=== PATIENT | female | born 1965 | race Caucasian/White ===

== ENCOUNTER 2017-01-13 19:10 | Emergency (ER) | payer OTHER ==
[2017-01-13] MEDS ORDERED: HYDROcodone/APAP 5-325MG 1 EACH TAB PO STA (20:05)
--- NOTE | 2017-01-13 20:10 | ED ---
Chest Pain HPI - General Chief Complaint: Dizziness Stated Complaint: heart palpitations Time Seen by Provider: 01/13/17 19:26 Source: patient Mode of arrival: wheelchair Limitations: no limitations - History of Present Illness Initial Comments: This patient is a 51-year-old woman with history of anxiety. She presents to be evaluate for sensation of chest tightness and palpitations that 1 going on since just before noon. The patient states that she had worked an overnight shift which is unusual for her. She went home and tried to sleep but she kept waking up with the sensation that her chest was pounding and then she also noted that she was having a tight feeling in her chest. She initially attributed this to her anxiety but states that it didn't improve. She therefore decided she should be seen here tonight. Patient has not had any anginal type symptoms, including no dyspnea, diaphoresis, nausea or vomiting, syncope. MD Complaint: chest pain -: hour(s) Onset: during rest Pain Location: substernal Pain Radiation: none Severity: mild Quality: tightness Consistency: constant Improves With: nothing Worsens With: nothing Treatments Prior to Arrival: none - Related Data Home Medications Medication Instructions Recorded Confirmed ALPRAZolam [Xanax] 1 mg PO TID PRN 10/06/14 01/13/17 Carbidopa-Levodopa 25-100 mg 1 tab PO HS 10/06/14 01/13/17 [Sinemet 25-100 mg] DULoxetine HCL [Cymbalta] 60 mg PO DAILY 01/13/17 01/13/17 HYDROcodone/APAP 7.5-325MG [[place] 1 tab PO TID PRN 01/13/17 01/13/17 7.5-325] Levothyroxine Sodium [Synthroid] 150 mcg PO DAILY 01/13/17 01/13/17 Allergies Allergy/AdvReac Type Severity Reaction Status Date / Time No Known Allergies Allergy Verified 01/13/17 19:36 Review of Systems ROS Statement: Those systems with pertinent positive or pertinent negative responses have been documented in the HPI. ROS Other: All systems not noted in ROS Statement are negative. Constitutional: Denies: fever, chills Respiratory: Denies: cough, dyspnea Cardiovascular: Reports: as per HPI, chest pain, palpitations. Denies: dyspnea on exertion, orthopnea, edema, syncope Gastrointestinal: Denies: abdominal pain, nausea, vomiting Genitourinary: Denies: dysuria, hematuria Musculoskeletal: Denies: back pain Skin: Denies: rash Neurological: Denies: headache, weakness, numbness Psychiatric: Reports: anxiety EKG Findings - EKG Results: EKG: interpreted by JASEN, sinus rhythm, normal axis, normal ST/T - Blocks, [place], Hypertrophy, ST Abn: AV and intraventricular conduction: left anterior fascicular block Past Medical History Past Medical History: Fibromyalgia, GERD/Reflux, Thyroid Disorder Additional Past Medical History / Comment(s): MIGRAINES, AORTIC REGERGITATION, FREQUENT CONSTIPATION. History of Any Multi-Drug Resistant Organisms: None Reported Past Surgical History: Bariatric Surgery, Section, Orthopedic Surgery Additional Past Surgical History / Comment(s): X4, RT ANKLE SURG X3, gastric bypass Past Anesthesia/Blood Transfusion Reactions: Motion Sickness Past Psychological History: Anxiety, Depression, Panic Disorder Smoking Status: Former smoker Past Alcohol Use History: None Reported Past Drug Use History: None Reported - Past Family History Father Family Medical History: Cancer Sister(s) Family Medical History: Cancer General Exam Limitations: no limitations General appearance: alert, in no apparent distress, anxious Head exam: Present: atraumatic, normocephalic Eye exam: Present: normal appearance. Absent: scleral icterus, conjunctival injection ENT exam: Present: normal oropharynx Neck exam: Present: normal inspection, full ROM Respiratory exam: Present: normal lung sounds bilaterally. Absent: respiratory distress, wheezes, rales, rhonchi, stridor Cardiovascular Exam: Present: regular rate, normal rhythm, normal heart sounds. Absent: systolic murmur, diastolic murmur, rubs, gallop GI/Abdominal exam: Present: soft. Absent: distended, tenderness, guarding, rebound, mass Extremities exam: Present: normal inspection, normal capillary refill. Absent: pedal edema, calf tenderness Back exam: Present: normal inspection. Absent: CVA tenderness (R), CVA tenderness (L) Neurological exam: Present: alert Psychiatric exam: Present: anxious Skin exam: Present: warm, dry, intact, normal color. Absent: rash Course Vital Signs 01/13/17 01/13/17 01/13/17 19:12 19:43 20:43 Temperature 97.7 F Pulse Rate 73 73 93 Pulse Rate [ 73 [employer] ] Respiratory 18 18 16 Rate Blood Pressure 136/60 142/73 133/84 O2 Sat by Pulse 99 99 99 Oximetry 01/13/17 21:31 Temperature 98.1 F Pulse Rate 85 Pulse Rate [ [employer]ep [employer] ] Respiratory 18 Rate Blood Pressure 148/75 O2 Sat by Pulse 99 Oximetry Disposition Clinical Impression: Chest pain, Anxiety Disposition: HOME SELF-CARE Condition: Good Instructions: Chest Pain (ED) Referrals: Jamey Betancourt MD [Primary Care Provider] - 1-2 days Gabbie Christensen MD [STAFF PHYSICIAN] - 1-2 days
[2017-01-13] MEDS: ASPIRIN 81 MG CHEW PO STA ×2 (20:11→20:14)
[2017-01-13 20:25] LABS: Basophils % (A) 1 %; CH 27.8; Eosinophils # (A) 0.1 k/uL (0-0.7); Eosinophils % (A) 2 %; HCT 37.1 % (34.0-46.0); HDW 2.21; Luc # (Auto) 0.13; Luc % (Auto) 3; Lymphocytes # (A) 1.4 k/uL (1.0-4.8); Lymphocytes % (A) 32 %; MCH 28.2 pg (25.0-35.0); MCHC 32.3 g/dL (31.0-37.0); MCV 87.3 fL (80.0-100.0); Mean Platelet Volume 7.8; Monocytes # (A) 0.4 k/uL (0-1.0); Monocytes % (A) 10 %; Neutrophils # (A) 2.2 k/uL (1.3-7.7); Neutrophils % (A) 52 %; RBC 4.25 m/uL (3.80-5.40); RDW 13.6 % (11.5-15.5); WBC 4.2 k/uL (3.8-10.6)
--- NOTE | 2017-01-13 20:26 | XR ---
EXAMINATION TYPE: XR chest 1V portable DATE OF EXAM: 01/13/2017 8:21 PM HISTORY: Shortness of breath. COMPARISON: None. TECHNIQUE: Single view of the chest is submitted. FINDINGS: Demonstrated are scattered senescent parenchymal change. There is no evidence for focal infiltrate. The heart is stable. Hilar and mediastinal structures are within normal limits. Degenerative changes are seen of the dorsal spine. IMPRESSION: 1. Chronic changes without evidence for acute pulmonary disease.
[2017-01-13 20:35] LABS: ALT 19 U/L (9-52); AST 27 U/L (14-36); Alkaline Phosphatase 77 U/L (38-126); Anion Gap 8 mmol/L; Blood Urea Nitrogen 17 mg/dL (7-17); Calcium 9.2 mg/dL (8.4-10.2); Carbon Dioxide 25 mmol/L (22-30); Chloride 108 mmol/L (98-107); Glucose 89 mg/dL (74-99); Non-African American GFR(MDRD) >60 (>60 ml/min/1.73 sqM); Potassium 4.1 mmol/L (3.5-5.1); Sodium 141 mmol/L (137-145); Total Bilirubin 0.7 mg/dL (0.2-1.3); Total Protein 6.8 g/dL (6.3-8.2)
[2017-01-13 20:53] LABS: Creatine Kinase 52 U/L (30-135)
[2017-01-13 21:05] LABS: Creatine Kinase MB 0.6 ng/mL (0.0-2.4); Troponin I <0.012 ng/mL (0.000-0.034)
[2017-01-13 21:33] VITALS: BP 148/75; PULSE 85; RESP 18; TEMP 98.1
== END 2017-01-13 21:55 | disposition home or self-care (01) ==
LOC: EC 19:10
DX: R07.2 Precordial pain (principal); F41.9 Anxiety disorder, unspecified; E07.9 Disorder of thyroid, unspecified; F32.9 Major depressive disorder, single episode, unspecified; F41.0 Panic disorder [episodic paroxysmal anxiety]; Z87.891 Personal history of nicotine dependence; Z79.899 Other long term (current) drug therapy
CPT/HCPCS: 36415; 71010; 80053; 82550; 82553; 83735; 84484; 85025; 85379; 93005; 99284

== ENCOUNTER 2017-02-23 11:12 | Day surgery (SDC) | payer OTHER ==
[2017-02-20 10:05] VITALS: BMI 24.2
[~2017-02-23 11:12] MED LIST: LACTATED RINGERS 1,000 ML IV SCH; LIDOCAINE 1% 20 ML VIAL (10MG/ML) FOR IV START INTRADERMA PRN
[2017-02-23 12:08] VITALS: RESP 16; TEMP 98
[2017-02-23] MEDS ORDERED: PROPOFOL 10 MG/ML 20 ML VIAL IV ONE (13:39)
--- NOTE | 2017-02-23 14:10 | P.PCN ---
Date of Procedure: 02/23/17 Preoperative Diagnosis: Postoperative Diagnosis: Procedure(s) Performed: Procedure: Total colonoscopy. Preoperative diagnosis: Rectal bleeding and history of polyps. Postoperative diagnosis: 1. Less than ideal preparation, but no obvious pathology or bleeding. 2. Low-grade internal hemorrhoids noted, not bleeding at the time of this exam. Preparation: HalfLytely prep. Sedation: Was provided by anesthesia. Brief clinical history: The patient is a 51-year-old female with history of constipation predominant irritable bowel syndrome and history of polyps, was evaluated last month in the office regarding streaking of blood on her stools and issues with feeling incomplete emptying. Her last colonoscopy was in September 2014 and back than her preparation was less than ideal either and I have recommended a repeat exam in 3 years. The patient was concerned and did not want to wait till September to schedule a repeat exam. Procedure: With the patient on her left lateral decubitus position and after informed consent and adequate sedation, the perianal area was inspected and it did not show any fissures or fistulas. There were no masses felt on digital rectal examination. The Olympus CFQ 160L video colonoscope was then inserted in the rectum in the usual fashion and advanced to the cecum. The preparation was less than ideal and there was fecal material and fecal debris encountered in various areas that I could not wash off or suction completely. Where visualized, the mucosa appeared healthy. No obvious polyps or tumors were seen or any obvious diverticular disease. There was no evidence of bleeding. I retroflexed the endoscope in the rectum before the endoscope was withdrawn. Low -grade internal hemorrhoids were noted but there was no bleeding. The patient tolerated the procedure well. Plan: The patient was reassured. Discussed dietary measures and local care for hemorrhoids. Further plans can be made based on her course. In light of her less than ideal preparation today, I would recommend repeat exam in 3 years following 2 day prep. She will follow-up with you as planned and I will be happy to see her in the office if her symptoms recur. Implants: Indications for Procedure: Operative Findings: Description of Procedure:
[2017-02-23 14:24] VITALS: BP 118/63; PULSE 91
== END 2017-02-23 14:43 | disposition home or self-care (01) ==
LOC: ORWHC2ENDO 11:12
DX: K64.8 Other hemorrhoids (principal); Z87.19 Personal history of other diseases of the digestive system; Z86.010 Personal history of colon polyps; K58.0 Irritable bowel syndrome with diarrhea; K21.9 Gastro-esophageal reflux disease without esophagitis; M79.7 Fibromyalgia; E07.9 Disorder of thyroid, unspecified; G25.81 Restless legs syndrome; F39 Unspecified mood [affective] disorder; Z79.891 Long term (current) use of opiate analgesic; Z79.899 Other long term (current) drug therapy; Z87.891 Personal history of nicotine dependence
CPT/HCPCS: 45378; J2704

== ENCOUNTER → 2017-02-25 | Outpatient (CLI) | payer OTHER ==
--- NOTE | 2017-02-25 12:22 | ECHOS ---
DATE OF SERVICE: 02/25/2017 AGE: 51Y SEX: F HT: 64 WT: 140 lbs. Protocol Donnell: X Others: Stress Echo Stage: II Dur. of Exercise: 6 minutes *Heart Rate Blood Pressure *Rest: 86 Rest: 177/62 * *Max. Achieved: 166 Maximum BP: 177/62 85% PMHR: 142 100% PMHR: 167 *METS: 7.1 INDICATION OF THE STUDY: Chest discomfort. MEDICATIONS: Cymbalta, Synthroid, [place], Xanax. STRESS DATA: Pretesting physical examination showed a heart rate of 86, pressure is 177/62 mmHg. Baseline EKG showed sinus rhythm. The patient exercised on treadmill according to Donnell protocol for a total of 6 minutes and achieved 7.1 METs. Max heart rate was 166, which is about 99% of maximum predicted heart rate. Maximum blood pressure was 177/62 mmHg. Clinically, the patient did not have any symptoms of chest pain or discomfort during the testing or in the recovery time. The EKG did not show any significant ST or T wave abnormalities consistent with ischemia. ECHOCARDIOGRAM IMAGES: On echocardiogram images from parasternal long axis view, parasternal short axis view, apical 4 chamber view, and apical 2 chamber view were obtained as the baseline images, at the peak of the heart rate, as well as on recovery. The echocardiogram images showed good augmentation in the left ventricular systolic function without any evidence of wall motion abnormalities consistent with ischemia. CONCLUSION: 1. Good exercise capacity. 2. Normal EKG in response to exercise. 3. Normal echocardiogram in response to exercise. 4. Essentially normal stress echocardiogram for the patient.
== END | disposition home or self-care (01) ==
LOC: RADNMMAIN 10:03
PROVIDERS: ATTEND Family Medicine
DX: R07.9 Chest pain, unspecified (principal)
CPT/HCPCS: 93017; 93225; 93226; 93350

== ENCOUNTER 2020-04-13 17:55 | Emergency (ER) | payer OTHER ==
[2020-04-13] MEDS ORDERED: ALPRAZolam 1 MG TAB PO STA (18:34)
[2020-04-13] MEDS ORDERED: HYDROcodone/APAP 5-325MG 1 EACH TAB PO STA (18:34)
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
[2020-04-13 19:55] VITALS: BP 118/80; PULSE 74; RESP 17; TEMP 97.6
== END 2020-04-13 19:55 | disposition home or self-care (01) ==
LOC: EC 17:55
DX: F41.0 Panic disorder [episodic paroxysmal anxiety] (principal); F32.9 Major depressive disorder, single episode, unspecified; M79.7 Fibromyalgia; K21.9 Gastro-esophageal reflux disease without esophagitis; E07.9 Disorder of thyroid, unspecified; G25.81 Restless legs syndrome; Z79.899 Other long term (current) drug therapy; Z79.890 Hormone replacement therapy
CPT/HCPCS: 99283

== ENCOUNTER → 2020-08-02 | Outpatient (CLI) | payer OTHER | END | disposition home or self-care (01) | LOC: LABWHC1 10:45 | PROVIDERS: ATTEND Family Medicine | DX: Z20.828 Contact with and (suspected) exposure to other viral communicable diseases (principal) | CPT/HCPCS: U0003; C9803 ==

== ENCOUNTER → 2021-06-14 | Outpatient (CLI) | payer OTHER ==
--- NOTE | 2021-06-18 08:22 | MM ---
Reason for exam: screening (asymptomatic). Last mammogram was performed 7 years and 8 months ago. History: Benign excisional biopsy of the right breast, 2008. Taking estrogen for 1 month. Physical Findings: A clinical breast exam by your physician is recommended on an annual basis and results should be correlated with mammographic findings. MG 3D Screening Mammo W/Cad Bilateral CC and MLO view(s) were taken. No prior studies available for comparison. There are scattered fibroglandular densities. ASSESSMENT: Benign, BI-RAD 2 RECOMMENDATION: Routine screening mammogram of both breasts in 1 year.
== END | disposition home or self-care (01) ==
LOC: RADMAMWWP 14:38
PROVIDERS: ATTEND Obstetrics & Gynecology Obstetrics
DX: Z12.31 Encounter for screening mammogram for malignant neoplasm of breast (principal)
CPT/HCPCS: 77063; 77067

== ENCOUNTER → 2021-10-25 | Day surgery (SDC) | payer BC, OTHER ==
[2021-10-22 12:09] VITALS: BMI 30.6
[~2021-10-25] MED LIST changes: -LACTATED RINGERS 1,000 ML IV SCH; -LIDOCAINE 1% 20 ML VIAL (10MG/ML) FOR IV START INTRADERMA PRN; +SODIUM CHLORIDE 0.9% 500 ML 500 ML IV ONE; +fentaNYL (PF) 50 MCG/ML 2 ML AMP ONE
[2021-10-25 07:28] VITALS: BP 99/58; PULSE 90; RESP 16; TEMP 98.3
== END ==
LOC: CATHCVL 06:11
PROVIDERS: ATTEND Internal Medicine Cardiovascular Disease
DX: I08.3 Combined rheumatic disorders of mitral, aortic and tricuspid valves (principal); Z53.8 Procedure and treatment not carried out for other reasons; U07.1 COVID-19; Z82.49 Family history of ischemic heart disease and other diseases of the circulatory system; Z72.0 Tobacco use; Z79.890 Hormone replacement therapy; Z79.899 Other long term (current) drug therapy; Z88.8 Allergy status to other drugs, medicaments and biological substances
CPT/HCPCS: 87635

== ENCOUNTER → 2022-01-09 | Outpatient (CLI) | payer BC ==
[2022-01-09 13:01] VITALS: BP 110/75; PULSE 77; RESP 18; TEMP 98.6
--- NOTE | 2022-01-09 13:01 | P.CON ---
Consult Note - . Consult date: 01/09/22 Assessment/Plan:: HISTORY OF PRESENT ILLNESS: 56 yr old female as a referral form Dr Segundo presents today with severe and chronic headache pain secondary to ischemic vessel changes. Patient states her headache pain starts at the base of her head, 1 out of 10 in intensity, pressure, dull sensation with radiation of pain up the head. It is accompanied with aura, blurred vision, double vision, nausea, photophobia. Patient is unsure whether provocative factors are. Pain is relieved with medications ([place] by Dr. Betancourt), topicals, physical therapy 1 month ago of a six-week stent, sitting in a dark cool quiet room and rest. Past Medical History: Fibromyalgia, GERD/Reflux, Thyroid Disorder, Migraine HAs, Aortic Regurgitation Past Surgical History: Gastric Bypass Surgery, Section x4, R Ankle Surgery x 3. Past Psychological History: Anxiety, Depression, Panic Disorder Smoking Status: Former smoker, no ETOH use or illicit drug use. Family History: Father- Cancer. Sister(s)- Cancer All: See list Meds: See list REVIEW OF ORGAN SYSTEMS: CONSTITUTIONAL: No fevers or chills. No recent weight loss. HEENT: No visual acuity loss, eye pain, difficulties with hearing. No nosebleeds. No difficulty swallowing. RESPIRATORY: Denies any troubles with breathing or dyspnea on exertion. CARDIOVASCULAR: Denies any chest pain, palpitations, or recent heart attacks. GASTROINTESTINAL: Denies fatty food intolerance. Has change in bowel habits and gas bloat. GENITOURINARY: Denies any blood in urine. Has increased urinary frequency. NEUROLOGICAL: + numbness and tingling along the distal extremities. No seizure disorders or headaches. MUSCULOSKELETAL: + back pain SKIN: No skin cancer. No rash. PSYCHIATRIC: Denies current depression or suicidal thoughts. ENDOCRINE: Denies current thyroid disorders. Denies any blood sugar glucose intolerance. HEME/LYMPHATIC: Denies any lumps and bumps around the neck. History of deep venous thrombosis. ALLERGY/IMMUNOLOGY: No immunoglobulin therapy. No immune deficiencies. BREAST: Denies current breast lumps, pain or nipple discharge. Physical Examinations : Constitutional : Cooperative , not in acute distress . HEENT: Neck supple. No Lymphadenopathy. Normal thyroid size . Mild +TADEO TTP Eyes no ptosis , no icterus, no photophobia . Hearing intact. Normal oropharynx. No Thrush. Respiratory : Chest clear to auscultations bilaterally. No wheezing. No rhonchi. Cardiovascular : Regular rate and rhythm , S1 / S2. No S3 . No S4. Gastrointestinal : Abdomen soft. No tenderness. Bowel sounds x 4. No organomegaly . Genitourinary : Deferred. Neurologic : Cranial nerve II to XII intact. No focal neurological deficits. Psychiatric : alert & oriented x 3. Matching mood & appropriate affect. Judgment & insight intact. Lymphatic No Lymphadenopathy. Musculoskeletal : Cervical Spine Motor strength in the deltoid and biceps: Normal right side. Normal Left side Motor strength biceps and the wrist extensors: Normal right side . Normal left side Motor strength in the triceps muscle: Normal right side. Normal left side Deep tendon reflexes: Normal at the biceps. Normal at Brachioradialis. Normal at triceps Cervical facet loading test: positive bilaterally Spurling test: positive bilaterally Neck distraction test: positive bilaterally Janice sign: positive bilaterally Lumbar spine Motor strength lower extremities ,thigh and legs 5/5 Right side , 5/5 Left side Deep tendon reflexes : Normal Knee Jerk. Normal Ankle Jerk Vertebral body tenderness over Lumbar facet Loading Test: positive Right / positive Left Range of motion of the lumbar spine Flexion 30 degrees, extension 10 degrees Straight Leg Raise test: Left/ Right positive at degree Thelma test: positive right / positive left. Severe tenderness over the Sacroiliac joint on the Right / Left sides Gaenslen test: positive bilaterally Seated flexion test: positive bilaterally. Imaging: MRI Brain from 05/17/21 reviewed. Assessment/ Plan : Occipital Neuralgia. Recommendation of BL G.O.N. injections. May need a series of injections, if sufficient pain relief is obtained with the initial one, for optimal pain relief. May also need to follow up with a neurologist if G.O.N. injections provide subpar results as pt may benefit from other pain management modalities to treat pain. Risks, benefits of procedure discussed and patient verbalized understanding. Denies aspirin or anti- coagulant use. Denies medical history of diabetes. All questions answered. I have spent greater than 50 minutes on patient care today. Dr Lau was available by phone for the evaluation of this patient. The time was used to review the medical records including relevant urine studies and Prescription history (MAPs), review of the available imaging, evaluation and examination of the patient, coordination of care with the medical staff and if applicable referring physicians, as well as creation of the medical record PQRS Measure Charge Sheet PQRS Narrative: Smoking Status Former smoker Home Medications: Ambulatory Orders ALPRAZolam [Xanax] 1 mg PO QID 10/06/14 DULoxetine HCL [Cymbalta] 60 mg PO BID 01/13/17 Cyclobenzaprine [Flexeril] 10 mg PO TID PRN 04/13/20 Fluticasone/Vilanterol [Breo Ellipta 100-25 Mcg Inhaler] 1 puff INHALATION DAILY 04/13/20 Levothyroxine Sodium [Synthroid] 125 mcg PO QAM 04/13/20 Albuterol Inhaler [Ventolin Hfa Inhaler] 1 - 2 puff INHALATION DIRECTED PRN 10/22/21 HYDROcodone/APAP 7.5-325MG [[place] 7.5-325] 1 tab PO QID 10/22/21 Hyoscyamine Sulfate [Levsin] 0.125 mg PO DIRECTED PRN 10/22/21 Omeprazole [PriLOSEC] 40 mg PO BID 10/22/21 Ospemifene [Osphena] 60 mg PO DAILY 10/22/21 Propranolol [Inderal] 20 mg PO TID 10/22/21 Topiramate 200 mg PO DAILY 10/22/21 rOPINIRole HCL [Requip] 0.5 mg PO HS 10/22/21 traZODone HCL 100 mg PO HS 10/22/21
== END ==
LOC: PNWHC3 12:14
PROVIDERS: ATTEND Specialist
DX: M54.81 Occipital neuralgia (principal); G89.29 Other chronic pain; G43.909 Migraine, unspecified, not intractable, without status migrainosus; F41.9 Anxiety disorder, unspecified; F32.A Depression, unspecified; Z87.891 Personal history of nicotine dependence; Z88.8 Allergy status to other drugs, medicaments and biological substances
CPT/HCPCS: 99211

== ENCOUNTER 2022-02-18 06:23 | Day surgery (SDC) | payer BC ==
[2022-02-14 13:30] VITALS: BMI 28.7
[~2022-02-18 06:23] MED LIST changes: +LACTATED RINGERS 1,000 ML IV SCH; +LIDOCAINE 1% (10MG/ML) FOR IV START INTRADERMA PRN; -SODIUM CHLORIDE 0.9% 500 ML 500 ML IV ONE; -fentaNYL (PF) 50 MCG/ML 2 ML AMP ONE
[2022-02-18 06:43] VITALS: PULSE 79; TEMP 97.5
[2022-02-18] MEDS ORDERED: methylPREDNISolone ACETATE 80 MG/ML 1 ML VIAL ONE (07:29)
[2022-02-18] MEDS ORDERED: fentaNYL (PF) 50 MCG/ML 2 ML AMP ONE (07:29)
[2022-02-18] MEDS ORDERED: MIDAZOLAM 2 MG/2 ML VIAL ONE (07:29)
[2022-02-18] MEDS ORDERED: ROPIVACAINE 5MG/ML 20ML VIAL ONE (07:29)
--- NOTE | 2022-02-18 07:38 | P.PCN ---
Date of Procedure: 02/18/22 Procedure(s) Performed: Preoperative diagnoses= 1- Greater occipital neuralgia Postoperative diagnoses= same as preoperative diagnosis. Procedure= Bilateral Greater occipital nerve block Anesthesia= moderate sedation with Versed 2 mg and fentanyl 100 micrograms and local infiltration with lidocaine 1% 4 ml Estimated blood loss=minimal. Procedure indication= the patient had a history of severe chronic neck pain ,and headache, diagnosed with occipital neuralgia exam was positive for severe tenderness over the occipital nerve bilaterally, she will be a good candidate occipital nerve block, patient failed conservative management Procedure description= the patient was seen and identified in the preoperative holding area, risks and benefits and alternative of the procedure and possible complications discussed with the patient, and he agreed with the preceding, patient signed the consent, an IV was started, and vital signs were monitored and were stable throughout the procedure, patient was placed in the sitting position or table and the neck area was prepped and draped with a sterile fash ion, vital signs were closely monitored during the procedure, 25-gauge needle advanced 1 inch lateral to the occipital protuberance on the right side, at the location of the right occipital nerve , then after negative aspiration for heme and CSF and there was no paresthesia during the injection, 6 ml of Robivacaine 0.5% and 40 mg of Depo-Medrol injected after negative aspiration, the needle rem nadiya, and the entire same procedure was repeated for the left Greater occipital nerve. Patient tolerated the procedure well without any complication, The patient returned to supine position after the back was cleaned and a Band- Aid applied, the patient transported to recovery room in stable condition and he was monitored for 30 minutes before he was discharged home and then patient was reexamined before going home and patient was discharged in stable condition and patient will follow up with the pain clinic in a few weeks.
[2022-02-18] MEDS ORDERED: IV FLUID CONTINUATION 1,000 ML IV ONE (07:42)
[2022-02-18 08:03] VITALS: BP 102/69; RESP 20
== END 2022-02-18 08:20 | disposition home or self-care (01) ==
LOC: ORPAIN 06:23
PROVIDERS: ATTEND Specialist
DX: M54.81 Occipital neuralgia (principal); Z88.8 Allergy status to other drugs, medicaments and biological substances; Z87.891 Personal history of nicotine dependence; Z79.899 Other long term (current) drug therapy
CPT/HCPCS: 64405; J2250; J1040; J3010; J2795

== ENCOUNTER → 2024-11-21 | Outpatient (CLI) | payer BC ==
--- NOTE | 2024-11-21 11:53 | BD ---
EXAMINATION TYPE: Axial Bone Density DATE OF EXAM: 11/21/2024 CLINICAL HISTORY: 59 years old Female. ICD-10 CODE: N95.1 MENOPAUSAL AND FEMALE CLIMACTERIC STATES , Additional History: Height: 63 Weight: 173.3 FRAX RISK QUESTIONS: Alcohol (3 or more units per day): no Family History (Parent hip fracture): no Glucocorticoids (More than 3mos): no (Ex: prednisone, prednisolone, methylprednisolone, dexamethasone, and hydrocortisone). History of Fracture in Adulthood: no Secondary Osteoporosis: 1. Type 1 Diabetes: no 2. Hyperthyroidism: no 3. Menopause before 45: no 4. Malnutrition: no 5. Chronic liver disease: no Rheumatoid Arthritis: no Current Tobacco Use: no RISK FACTORS HISTORY OF: Hip Fracture (Right/Left): no Spine Fracture: no History of Wrist Fracture: no Surgery to Spine/Hip(right/left)/Wrist (right/left): no MEDICATIONS: Thyroid Medications: Levothyroxine How Long: past 30 years Osteoporosis Medications: no EXAM MEASUREMENTS: Bone mineral densitometry was performed using the [email or web address] System. Bone mineral density as measured about the Lumbar spine is: ----- L1-L4(G/cm2): 0.998 T Score Values are as follows: ----- L1: -1.4 ----- L2: -0.4 ----- L3: -2.0 ----- L4: -2.1 ----- L1-L4: -1.5 Z Score Values are as follows: ----- L1: -0.6 ----- L2: 0.4 ----- L3: -1.2 ----- L4: -1.3 ----- L1-L4: -0.7 Baseline Study Bone mineral density about the R hip (g/cm2): 0.930 Bone mineral density about the L hip (g/cm2): 0.897 T Score values are as follows: -----R Neck: -1.1 -----L Neck: -1.4 -----R Total: -0.6 -----L Total: -0.9 Z Score values are as follows: -----R Neck: -0.1 -----L Neck: -0.4 -----R Total: 0.0 -----L Total: -0.2 Baseline Study FRAX%s: The graph provided illustrates a 7.6% chance for a major osteoporotic fx and a 0.6% chance fo r the hips probability for fx in 10 years time. IMPRESSION: Osteopenia (T Score between -2.5 and -1). There is slightly increased risk of fracture and the patient may be considered for treatment. Re-Screen 2-5 years. NOTE: T-SCORE=SD OF THE YOUNG ADULT MEAN. [facility], , 11/21/2024 11:50 AM
== END | disposition home or self-care (01) ==
LOC: RADBDWWP 06:56
PROVIDERS: ATTEND Family Medicine
DX: M85.89 Other specified disorders of bone density and structure, multiple sites (principal); N95.1 Menopausal and female climacteric states
CPT/HCPCS: 77080

== ENCOUNTER → 2025-01-16 | Outpatient (CLI) | payer BC ==
--- NOTE | 2025-01-16 12:41 | XR ---
EXAMINATION TYPE: XR knee complete LT DATE OF EXAM: 01/16/2025 12:27 PM COMPARISON: None. CLINICAL INDICATION: Female, 59 years old with history of M25.562 Pain left knee, pain TECHNIQUE: Three views of the left knee are obtained. FINDINGS: There is no acute fracture/dislocation evident in left knee. The tri-compartment joint sp aces appear within normal limits. The overlying soft tissue appears unremarkable. Small suprapatella r joint effusion noted. IMPRESSION: There is no acute fracture or dislocation in the left knee. [facility], , 01/16/2025 12:39 PM
== END | disposition home or self-care (01) ==
LOC: RADXRMAIN 12:09
PROVIDERS: ATTEND Family Medicine
DX: M25.462 Effusion, left knee (principal)